=== PATIENT | male | born 1995 | race Asian ===

== ENCOUNTER → 2018-07-10 | Outpatient (CLI) | payer OTHER ==
--- NOTE | 2018-07-10 20:08 | REP ---
Clinical: Dyspnea . Comparison: None . Technique: PA and lateral. Findings: The mediastinum and cardiac silhouette are normal. The lung blount are clear and without acute consolidation, effusion, or pneumothorax. The skeletal structures are intact and normal. Impression: 1. No acute cardiopulmonary process. Electronically Signed by Wesley Middleton MD 07/10/2018 07:59 P
== END ==
LOC: M SMT 14:48
PROVIDERS: ATTEND Physician Assistant
DX: R06.00 Dyspnea, unspecified (principal)

== ENCOUNTER → 2018-08-05 | Outpatient (CLI) | payer OTHER ==
[~2018-08-05] MED LIST: METHACHOLINE KIT (J7674) INH ONE
--- NOTE | 2018-08-05 15:17 | PFTRPT ---
Height: 69.00 Inches Weight: 157.00 Lbs BSA: 1.86 Diagnosis: DATE OF PROCEDURE: 08/05/2018 ORDERED BY: JOSH Espinosa INTERPRETATION: Study of excellent technical quality. Under protocol, methacholine was administered. Even after a maximal dose of 25 mg or 188.875 CDUs, no provocation dose ever achieved. IMPRESSION: Negative methacholine challenge study. MTDD
== END ==
LOC: M CARPUL 13:28
PROVIDERS: ATTEND Physician Assistant
DX: R06.00 Dyspnea, unspecified (principal)